=== PATIENT | female | born 1975 | race Caucasian/White ===

== ENCOUNTER → 2016-04-06 | Outpatient (CLI) | payer OTHER ==
--- NOTE | 2016-04-07 08:53 | MM ---
Reason for exam: screening (asymptomatic). Last mammogram was performed 1 year and 6 months ago. History: Family history of breast cancer in paternal grandmother at age 70. Physical Findings: A clinical breast exam by your physician is recommended on an annual basis and results should be correlated with mammographic findings. MG Screening Mammo w CAD Bilateral CC and MLO view(s) were taken. Prior study comparison: October 01, 2014, bilateral MG screening mammo w CAD. The breast tissue is extremely dense which could obscure a lesion on mammography. No significant changes when compared with prior studies. ASSESSMENT: Benign, BI-RAD 2 RECOMMENDATION: Routine screening mammogram of both breasts in 1 year.
== END | disposition home or self-care (01) ==
LOC: RADMAMWWP 08:15
PROVIDERS: ATTEND Obstetrics & Gynecology
DX: Z12.31 Encounter for screening mammogram for malignant neoplasm of breast (principal)

== ENCOUNTER → 2017-04-14 | Outpatient (CLI) | payer BC ==
--- NOTE | 2017-04-14 16:32 | US ---
EXAMINATION TYPE: US pelvis complete transvag DATE OF EXAM: 04/14/2017 COMPARISON: NONE CLINICAL HISTORY: 41-year-old female N92.6 Irregular Menses. TECHNIQUE: Transvaginal (TV) and Transabdominal (TA) Date of LMP: Irregular. About a week ago Findings: Uterus: Anteverted measuring 10.4 x 4.2 x 4.9 cm. There is a 1.5 cm hypoechoic area along the outboard technician ior left uterine body with an intramural location. Endometrial Stripe: 0.7 cm, within normal limits. Right Ovary: 5.3 x 5.4 x 4.5 cm with a 4.7 cm simple cyst within. Left Ovary: 3.1 x 1.9 x 3.1 cm with a 2.5 cm crenulated cystic structure, possible recently rupture d follicle or corpus luteum. No evident adnexal abnormality or cul-de-sac free fluid. IMPRESSION: 1. Endometrial stripe measuring 7 mm, within normal limits. 2. A 1.5 cm intramural fibroid left posterior uterine body 3. A large 4.7 cm dominant follicle or cyst in the right ovary. 4. A smaller 2.5 cm ruptured follicle or corpus luteum in the left ovary.
== END | disposition home or self-care (01) ==
LOC: RADUSWWP 15:16
PROVIDERS: ATTEND Internal Medicine
DX: D25.1 Intramural leiomyoma of uterus (principal); N83.201 Unspecified ovarian cyst, right side
CPT/HCPCS: 76830; 76856

== ENCOUNTER → 2017-04-26 | Outpatient (CLI) | payer BC ==
--- NOTE | 2017-04-26 13:59 | CT ---
EXAMINATION TYPE: CT pelvis w con DATE OF EXAM: 04/26/2017 COMPARISON: Pelvic ultrasound April 14, 2017 HISTORY: Unspecified ovarian cyst, bilateral CT DLP: 883 mGycm Automated exposure control for dose reduction was used. CONTRAST: Performed with IV Contrast, patient injected with 100 ml mL of Omnipaque 300. FINDINGS: Heterogeneous anteverted uterus is redemonstrated. Probable small fibroids are seen better on pelvic ultrasound, can be confirmed with pelvic MRI if desired. There are small to moderate amount of free f luid in pelvic cul-de-sac on current study new from prior ultrasound. Nabothian cysts in the cervix a re felt present on CT not as well seen on recent ultrasound. Corresponding to ultrasound there is 3.6 x 3.0 cm oval low dense lesion right ovary slightly higher d ensity than adjacent bladder and smaller 2.2 x 1.8 cm hypodense lesion left ovary with marked on axia l image 48. No suspicious nodularity or enhancement is identified. The slice portion bladder is unremarkable. Visualized bowel shows no suspicious dilatation. There is no pneumoperitoneum identified. There is no greater than 1 cm pelvic adenopathy seen. Visualized osse ous structures are intact. IMPRESSION: BILATERAL ADNEXAL LESIONS REDEMONSTRATED POSSIBLE HEMORRHAGIC CYSTS, CT IS LESS SENSITIVE TO EVALUATE THAN ULTRASOUND. CONSIDER ULTRASOUND FOLLOW-UP IN 4-6 WEEKS' TIME TO FURTHER ASSESS. NEW SMALL TO MO DERATE AMOUNT FREE FLUID IN PELVIC CUL-DE-SAC IS NONSPECIFIC FINDING.
== END | disposition home or self-care (01) ==
LOC: RADMAMWWP 10:58
PROVIDERS: ATTEND Internal Medicine
DX: N83.8 Other noninflammatory disorders of ovary, fallopian tube and broad ligament (principal)
CPT/HCPCS: 72193; Q9967

== ENCOUNTER 2017-05-31 06:53 | Day surgery (SDC) | payer BC ==
[2017-05-30 11:13] VITALS: BMI 24.3
--- NOTE | 2017-05-30 12:36 | P.HPOB ---
History of Present Illness H&P Date: 05/30/17 Chief Complaint: Menorrhagia with irregular cycle 41 year old presents for D&C hysteroscopy endometrial ablation with NovaSure. Review of Systems All systems: negative Constitutional: Denies chills, Denies fever Eyes: denies blurred vision, denies pain Ears, nose, mouth and throat: Denies headache, Denies sore throat Cardiovascular: Denies chest pain, Denies shortness of breath Respiratory: Denies cough Gastrointestinal: Denies abdominal pain, Denies diarrhea, Denies nausea, Denies vomiting Genitourinary: Denies dysuria, Denies hematuria Musculoskeletal: Denies myalgias Integumentary: Denies pruritus, Denies rash Neurological: Denies numbness, Denies weakness Psychiatric: Denies anxiety, Denies depression Endocrine: Denies fatigue, Denies weight change Past Medical History Past Medical History: No Reported History Additional Past Medical History / Comment(s): Menorrhagia History of Any Multi-Drug Resistant Organisms: None Reported Past Surgical History: Hernia Repair Past Anesthesia/Blood Transfusion Reactions: Motion Sickness Past Psychological History: No Psychological Hx Reported Smoking Status: Current every day smoker Past Alcohol Use History: None Reported Past Drug Use History: None Reported - Past Family History Mother Family Medical History: No Reported History Medications and Allergies Home Medications Medication Instructions Recorded Confirmed Type No Known Home Medications [No 05/30/17 05/30/17 History Known Home Medications] Allergies Allergy/AdvReac Type Severity Reaction Status Date / Time No Known Allergies Allergy Verified 05/30/17 11:08 Exam Osteopathic Statement: *. No significant issues noted on an osteopathic structural exam other than those noted in the History and Physical/Consult. - Vital Signs Vital signs: Intake and Output 05/29/17 05/30/17 05/30/17 22:59 06:59 14:59 Other: Weight 77.111 kg Patient Weight 05/31/17 06:59 Weight 77.111 kg Heart: RRR Lungs: CTAB Abdomen: soft, nontender Extremeties: neg shelley's Assessment and Plan (1) Menorrhagia with irregular cycle Status: Acute Code(s): N92.1 - EXCESSIVE AND FREQUENT MENSTRUATION WITH IRREGULAR CYCLE SNOMED Code(s): 752786501 Plan: 1. D&C hysteroscopy endometrial ablation with NovaSure
[~2017-05-31 06:53] MED LIST: DEXAMETHASONE SOD PHOSPHATE 10 MG/ML 1 ML VIAL IV ONE; HYDROmorphone 0.5 MG/0.5 ML SYRINGE IVP PRN; LACTATED RINGERS 1,000 ML IV SCH; ONDANSETRON 4 MG/2 ML VIAL IVP ONE; Pre Op ABX Message 1 EACH MISC MISCELLANE ONE
[2017-05-31] MEDS ORDERED: LIDOCAINE 1% 20 ML VIAL (10MG/ML) FOR IV START SQ ONE ×2 (07:15)
[2017-05-31] MEDS ORDERED: SCOPOLAMINE 1.5MG/72HR PATCH TRANSDERM ONE (07:47)
[2017-05-31] MEDS ORDERED: PROPOFOL 10 MG/ML 20 ML VIAL IV ONE (07:53)
[2017-05-31] MEDS ORDERED: KETOROLAC 30 MG/ML 1 ML VIAL ONE (07:53)
[2017-05-31] MEDS ORDERED: fentaNYL (PF) 50 MCG/ML 2 ML AMP ONE (07:53)
[2017-05-31] MEDS ORDERED: MIDAZOLAM 2 MG/2 ML VIAL ONE (07:53)
[2017-05-31] MEDS ORDERED: LIDOCAINE 1% INJ 10MG/ML (20 ML MDV) ONE (07:53)
--- NOTE | 2017-05-31 08:23 | P.OP ---
Date of Procedure: 05/31/17 Preoperative Diagnosis: 1. Menorrhagia Postoperative Diagnosis: 1. Menorrhagia Procedure(s) Performed: D&C, hysteroscopy, endometrial ablation with NovaSure Anesthesia: MAC Surgeon: Deanne Rosales Estimated Blood Loss (ml): 10 IV fluids (ml): 200 Urine output (ml): 50 Pathology: other (Endometrial curettings) Condition: stable Disposition: PACU Operative Findings: Cavity length 6 cm, width 4.8 cm, power 158 W, time of ablation 62 seconds, adequate ablation after NovaSure Description of Procedure: Patient is taken the operating room where general anesthesia was obtained without difficulty. She was prepped and draped in normal sterile fashion dorsal lithotomy position, legs placed in the Thwapr cane stirrups. Bladder was drained of all urine. Weighted speculum placed in the vagina and the anterior lip the cervix was grasped with serial tooth tenaculum. The uterus sounded to 9 cm and the cervix under 3 cm making the cavity length 6 cm. The cervix was dilated to #8 Hegar dilator. Hysteroscopy was then performed. Both ostia were visualized and there was a smooth contour of the uterus and moderate amount of proliferative endometrium noted. Sharp curet was then gently used to obtain endometrial curettings. The NovaSure was introduced into the uterus with a cavity length of 6 cm, width 3 cm. After cavity assessment was passed, the time of ablation was 62 seconds at 158 W. Hysteroscopy was again performed and adequate ablation was noted. All instruments removed from the vagina. Patient tolerated the procedure well, sponge and instrument counts were correct 2 and she was taken to recovery in stable condition.
[2017-05-31 08:34] VITALS: TEMP 97.5
[2017-05-31 08:49] VITALS: RESP 16
[2017-05-31 09:46] VITALS: BP 104/69; PULSE 62
== END 2017-05-31 10:12 | disposition home or self-care (01) ==
LOC: OR 06:53
PROVIDERS: ATTEND Obstetrics & Gynecology
DX: N84.0 Polyp of corpus uteri (principal); N92.0 Excessive and frequent menstruation with regular cycle; N92.6 Irregular menstruation, unspecified; F17.210 Nicotine dependence, cigarettes, uncomplicated
CPT/HCPCS: 81025; 88305; 58563; J2250; J1100; J2405; J2001; J3010; J1885; J2704

== ENCOUNTER → 2017-07-12 | Outpatient (CLI) | payer BC ==
--- NOTE | 2017-07-12 11:08 | US ---
EXAMINATION TYPE: US pelvic complete DATE OF EXAM: 07/12/2017 COMPARISON: 04/14/2017, CT 04/26/2017 CLINICAL HISTORY: N83.20 Previous right Ovarian Cyst. Follow up to right side ovarian cyst. Ablation about 1 month ago TECHNIQUE: . Transabdominal sonographic images of the pelvis were acquired. Date of LMP: About 1 month ago EXAM MEASUREMENTS: Uterus: 9.3 x 4.2 x 4.7 cm Endometrial Stripe: 0.5 cm Right Ovary: 2.5 x 1.8 x 1.7 cm Left Ovary: 4.0 x 2.5 x 1.7 cm 1. Uterus: Anteverted Hypoechoic area visualized measuring 1.4 x 1.7 x 1.2 cm 2. Endometrium: wnl 3. Right Ovary: wnl 4. Left Ovary: wnl 5. Bilateral Adnexa: wnl 6. Posterior cul-de-sac: Small amount of free fluid visualized IMPRESSION: 1. Resolution previous right ovarian cyst 2. Small uterine fibroid may be identified. 3. Endometrial canal appears unremarkable
== END | disposition home or self-care (01) ==
LOC: RADUSWWP 10:19
PROVIDERS: ATTEND Obstetrics & Gynecology
DX: N83.201 Unspecified ovarian cyst, right side (principal)
CPT/HCPCS: 76856

== ENCOUNTER → 2017-12-06 | Outpatient (CLI) | payer BC ==
--- NOTE | 2017-12-06 12:15 | US ---
EXAMINATION TYPE: US soft tissue neck DATE OF EXAM: 12/06/2017 COMPARISON: NONE CLINICAL HISTORY: 42-year-old female R59.0 Enlarged lymph node in neck. TECHNIQUE: Targeted sonographic examination along the left posterolateral aspect of the neck at the p atient's palpable site. FINDINGS: Finish Filer notes: At the patients palpable are normal appearing lymph nodes. Some in store representative lymph nodes measure 8 x 2 and 8 x 5 mm. No enlarged lymph nodes or other abnormal ities identified. IMPRESSION: Targeted scanning of the patient's palpable site, left posterolateral aspect of the neck shows a few nonenlarged lymph nodes measuring up to 5 mm short axis.
== END | disposition home or self-care (01) ==
LOC: RADUSWWP 11:00
PROVIDERS: ATTEND Internal Medicine
DX: R59.0 Localized enlarged lymph nodes (principal)
CPT/HCPCS: 76536

== ENCOUNTER → 2020-01-28 | Outpatient (CLI) | payer SELFPAY | END | disposition home or self-care (01) | LOC: LABWHC1 13:10 | PROVIDERS: ATTEND Internal Medicine | DX: Z20.828 Contact with and (suspected) exposure to other viral communicable diseases (principal) | CPT/HCPCS: U0003; C9803 ==

== ENCOUNTER → 2020-06-24 | Outpatient (CLI) | payer BC ==
--- NOTE | 2020-06-26 11:07 | MM ---
Reason for exam: screening (asymptomatic). Last mammogram was performed 4 years and 3 months ago. History: Family history of breast cancer in paternal grandmother at age 70. Physical Findings: A clinical breast exam by your physician is recommended on an annual basis and results should be correlated with mammographic findings. MG Screening Mammo w CAD Bilateral CC and MLO view(s) were taken. Prior study comparison: April 06, 2016, bilateral MG screening mammo w CAD. October 01, 2014, bilateral MG screening mammo w CAD. Focal asymmetry left MLO view. ASSESSMENT: Incomplete: need additional imaging evaluation, BI-RAD 0 RECOMMENDATION: Special view mammogram of the left breast. If lesion persists on supplemental views, image directed ultrasound is recommended. [facility] will attempt to contact patient to return for supplemental views and ultrasound if indicated.
== END | disposition home or self-care (01) ==
LOC: RADMAMWWP 11:15
PROVIDERS: ATTEND Internal Medicine
DX: Z12.31 Encounter for screening mammogram for malignant neoplasm of breast (principal); Z80.3 Family history of malignant neoplasm of breast
CPT/HCPCS: 77067

== ENCOUNTER → 2020-07-02 | Outpatient (CLI) | payer BC ==
--- NOTE | 2020-07-02 11:12 | MM ---
Reason for exam: additional evaluation requested from abnormal screening. Last mammogram was performed less than 1 month ago. History: Family history of breast cancer in paternal grandmother at age 70. Took hormonal contraceptives for 5 years. Physical Findings: Nurse did not find any significant physical abnormalities on exam. MG Work Up Mamm w CAD LT LM and spot compression MLO view(s) were taken of the left breast. Prior study comparison: June 24, 2020, bilateral MG screening mammo w CAD. April 06, 2016, bilateral MG screening mammo w CAD. Area of concern is less conspicuous. These results were verbally communicated with the patient and result sheet given to the patient on 07/02/20. ASSESSMENT: Incomplete: need additional imaging evaluation, BI-RAD 0 RECOMMENDATION: Ultrasound of the left breast.
--- NOTE | 2020-07-02 11:13 | USB ---
Reason for exam: additional evaluation requested from abnormal screening. History: Family history of breast cancer in paternal grandmother at age 70. Took hormonal contraceptives for 5 years. US Breast Workup Limited LT Left limited breast ultrasound including focal area of concern, retroareolar and axilla demonstrates a 0.4 x 0.3 x 0.4cm cystic cluster at 2 o'clock. These results were verbally communicated with the patient and result sheet given to the patient on 07/02/20. ASSESSMENT: Benign, BI-RAD 2 RECOMMENDATION: Return to routine screening mammogram schedule for both breasts.
== END | disposition home or self-care (01) ==
LOC: RADMAMWWP 10:04
PROVIDERS: ATTEND Internal Medicine
DX: Z80.3 Family history of malignant neoplasm of breast (principal)
CPT/HCPCS: 77065

== ENCOUNTER → 2021-09-13 | Outpatient (CLI) | payer BC ==
--- NOTE | 2021-09-14 02:07 | MR ---
EXAMINATION TYPE: MR shoulder RT wo con DATE OF EXAM: 09/13/2021 COMPARISON: None HISTORY: Right shoulder pain, radiates down arm. Multiplanar multiecho imaging of the right shoulder with no contrast. The AC joint is intact. Supraspinatus tendon appears intact. No evidence of a tear. There is no retra ction. There is no subacromial impingement. Subscapularis tendon is intact. Glenoid eddi appear normal. There is a very minute shoulder joint ef fusion. The biceps tendon is intact. Humeral head appears normal. The glenoid appears normal. IMPRESSION: There is minute shoulder joint effusion. Otherwise negative exam. No evidence of rotator cuff tear. T his could relate to minimal synovitis.
== END | disposition home or self-care (01) ==
LOC: RADMRIMAIN 17:21
PROVIDERS: ATTEND Internal Medicine
DX: M25.411 Effusion, right shoulder (principal); M25.511 Pain in right shoulder

== ENCOUNTER → 2022-07-01 | Outpatient (CLI) | payer BC ==
--- NOTE | 2022-07-01 10:37 | XR ---
EXAMINATION TYPE: XR foot complete RT DATE OF EXAM: 07/01/2022 COMPARISON: NONE HISTORY: Pain TECHNIQUE: Three views are submitted. FINDINGS: The osseous structures are intact. There is no acute fracture or dislocation. There is hypertrophi c arthropathy of the first and second MTP joints. IMPRESSION: 1. No acute fracture or dislocation. If symptoms persist, follow-up exam in 7 to 10 days could be ob tained.
== END | disposition home or self-care (01) ==
LOC: RADXRYALE 10:03
PROVIDERS: ATTEND Internal Medicine
DX: M79.671 Pain in right foot (principal)

== ENCOUNTER → 2022-10-31 | Outpatient (CLI) | payer BC ==
--- NOTE | 2022-11-01 09:44 | XR ---
EXAMINATION TYPE: XR lumbosacral spine min 4V DATE OF EXAM: 10/31/2022 CLINICAL HISTORY: pain COMPARISON: NONE TECHNIQUE: Frontal, lateral, and oblique images of the lumbar spine are obtained. FINDINGS: There are 5 lumbar type vertebral bodies identified. The lumbar spine shows satisfactory alignment without evidence of acute fracture or dislocation. Vertebral body heights are within normal limits. Mild degenerative disc space narrowing L3-4 through L5-S1. Mild facet joint arthropathy. T he overlying soft tissue appears unremarkable. IMPRESSION: No acute fracture or dislocation is seen in the lumbar spine.ICD 10 NO FRACTURE, INITIAL EVALUATION
--- NOTE | 2022-11-01 10:04 | XR ---
EXAMINATION TYPE: XR Hip Bilateral Complete DATE OF EXAM: 10/31/2022 4:57 PM INDICATION: Patient age:Female; 47 years old; Reason for study: [id number] RT HIP PAIN,LBP; [facility]. COMPARISON: None. TECHNIQUE: The bilateral hips were examined in the frontal and lateral projections FINDINGS: No evidence for acute process, joint dislocation or significant soft tissue swelling. Osteo phyte formation of the superior acetabulum of the hip. IMPRESSION: 1. No evidence for acute process. 2. Mild hip osteoarthrosis.
== END | disposition home or self-care (01) ==
LOC: RADXRYALE 16:38
PROVIDERS: ATTEND Internal Medicine
DX: M16.0 Bilateral primary osteoarthritis of hip (principal); M54.50 Low back pain, unspecified
CPT/HCPCS: 72110; 73521

== ENCOUNTER → 2022-11-25 | Outpatient (CLI) | payer BC ==
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
--- NOTE | 2022-11-29 08:26 | MM ---
Reason for Exam: Screening (asymptomatic). Last mammogram was performed 2 year(s) and 6 month(s) ago. Patient History: Menarche at age 13. First Full-Term at age 24. Premenopausal. Patient used Hormonal Contraceptives for 5 years. Paternal grandmother had breast cancer, age 70. Risk Values: Bernie 5 year model risk: 0.8%. NCI Lifetime model risk: 8.4%. Prior Study Comparison: 04/06/2016 Bilateral Screening Mammogram, [facility]. 06/24/2020 Bilateral Screening Mammogram, [facility]. 07/02/2020 Left Diagnostic Mammogram, [facility]. Tissue Density: There are scattered fibroglandular densities. Findings: Analyzed By CAD. There is no suspicious group of microcalcifications or new suspicious mass. Overall Assessment: Negative, BI-RAD 1 Management: Screening Mammogram of both breasts in [address] [facility] will attempt to contact patient to return for supplemental views and ultrasound if indicated. Patient should continue monthly self-breast exams. A clinical breast exam by your physician is recommended on an annual basis. This exam should not preclude additional follow-up of suspicious palpable abnormalities. Note on Bernie scores and lifetime risk: 1. A Bernie score greater than 3% is considered moderate risk. If this is the case, consider specialist referral to assess eligibility for a risk reducing agent. 2. If overall lifetime risk for the development of breast cancer is 20% or higher, the patient may qualify for future screening with alternating mammogram and breast MRI. Electronically signed and approved by: Charlie Phelps DO
== END | disposition home or self-care (01) ==
LOC: RADMRIMAIN 05:52
PROVIDERS: ATTEND Internal Medicine
DX: Z12.31 Encounter for screening mammogram for malignant neoplasm of breast (principal); M47.812 Spondylosis without myelopathy or radiculopathy, cervical region; M25.512 Pain in left shoulder; M50.30 Other cervical disc degeneration, unspecified cervical region; V49.40XD Driver injured in collision with unspecified motor vehicles in traffic accident, subsequent encounter; Z80.3 Family history of malignant neoplasm of breast
CPT/HCPCS: 72141; 77063; 77067

== ENCOUNTER → 2023-03-17 | Outpatient (CLI) | payer BC ==
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
== END | disposition home or self-care (01) ==
LOC: RADMRIMAIN 05:52
PROVIDERS: ATTEND Internal Medicine
DX: M51.36 Other intervertebral disc degeneration, lumbar region (principal); M47.816 Spondylosis without myelopathy or radiculopathy, lumbar region; M25.551 Pain in right hip
CPT/HCPCS: 72148

== ENCOUNTER → 2024-06-25 | Outpatient (CLI) | payer BC ==
--- NOTE | 2024-06-25 11:43 | MM ---
Reason for Exam: Screening (asymptomatic). Last mammogram was performed 1 year(s) and 7 month(s) ago. Patient History: Menarche at age 13. First Full-Term at age 24. Premenopausal. Patient used Hormonal Contraceptives for 5 years. Paternal grandmother had breast cancer, age 70. Risk Values: Bernie 5 year model risk: 0.8%. NCI Lifetime model risk: 8.3%. Prior Study Comparison: 06/24/2020 Bilateral Screening Mammogram, [facility]. 07/02/2020 Left Diagnostic Mammogram, [facility]. 11/25/2022 Bilateral MG 3D screening mammo w/cad, [facility]. Tissue Density: The breasts are heterogeneously dense, which may obscure small masses. Findings: Analyzed By CAD. There is no suspicious group of microcalcifications or new suspicious mass in either breast. Overall Assessment: Negative, BI-RAD 1 Management: Screening Mammogram of both breasts in 1 year. . Patient should continue monthly self-breast exams. A clinical breast exam by your physician is recommended on an annual basis. This exam should not preclude additional follow-up of suspicious palpable abnormalities. Note on Bernie scores and lifetime risk: 1. A Bernie score greater than 3% is considered moderate risk. If this is the case, consider specialist referral to assess eligibility for a risk reducing agent. 2. If overall lifetime risk for the development of breast cancer is 20% or higher, the patient may qualify for future screening with alternating mammogram and breast MRI. [facility], , 06/25/2024 11:40 AM. Electronically signed and approved by: Vimal Triana M.D. Radiolog[facility]
== END | disposition home or self-care (01) ==
LOC: RADMAMWWP 11:16
PROVIDERS: ATTEND Internal Medicine
DX: Z12.31 Encounter for screening mammogram for malignant neoplasm of breast (principal); R92.333 Mammographic heterogeneous density, bilateral breasts; Z80.3 Family history of malignant neoplasm of breast; Z92.0 Personal history of contraception
CPT/HCPCS: 77063; 77067